=== PATIENT | female | born 1995 | race Caucasian/White ===

== ENCOUNTER 2022-08-25 00:26 | Emergency (ER) | payer MEDICAID ==
[~2022-08-25] VITALS: Ht 170.2 cm; Wt 122.5 kg
[2022-08-25 00:40] VITALS: BP_SYST 111
--- NOTE | 2022-08-25 00:40 | NUR ---
Triaged and placed patient in ER bed 3 for evaluation. Report given to JOE MIX for continuity of care. VSS, no acute respiratory distress noted at this time. Instructed to notify ED staff for any changes in condition or worsening of symptoms. Patient verbalized understanding.
--- NOTE | 2022-08-25 00:48 | NUR ---
Dr. Lambert is at bedside examining the patient.
[2022-08-25] MEDS ORDERED: cefTRIAXone 1 GM in LIDOCAINE 1%, 20 ML MDV 2.1 ML IM ONE (01:00)
[2022-08-25] MEDS ORDERED: KETOROLAC TROMETHAMINE 60 MG/2 ML VIAL IM ONE (01:00)
[2022-08-25] MEDS ORDERED: NAPR-690 PO (01:22)
[2022-08-25] MEDS ORDERED: PENI250T2 PO ×2 (01:22→13:05)
--- NOTE | 2022-08-25 01:24 | NUR ---
friend at the bedside
[2022-08-25 01:47] VITALS: BP_SYST 122
--- NOTE | 2022-08-25 01:49 | NUR ---
Patient given written and verbal discharge instructions BY DR. MANNING and verbalizes understanding. ER MD discussed with patient the results and treatment provided. Patient in stable condition. ID arm band removed. Rx of NAPROXEN AND PENICILLIN given. Patient educated on pain management and to follow up with PMD. Pain Scale 0/10. Opportunity for questions provided and answered. Medication side effect fact sheet provided.
[2022-08-25] MEDS ORDERED: NAPR-688 PO (13:05)
== END 2022-08-25 01:48 | disposition home or self-care (01) ==
LOC: SED 00:26
DX: K08.89 Other specified disorders of teeth and supporting structures (principal); Z79.899 Other long term (current) drug therapy
CPT/HCPCS: 99283; J0696; J1885; J2001